=== PATIENT | male | born 1965 | race Hispanic/Latino ===

== ENCOUNTER 2016-11-08 16:36 | Emergency (ER) | payer OTHER ==
[~2016-11-08] VITALS: Ht 149.9 cm; Wt 76.7 kg
--- NOTE | 2016-11-08 17:24 | ED HAND/WRIST INJURY COMPLAINT ---
History of Present Illness General Chief Complaint: Laceration Procedure Stated Complaint: CUT LEFT FINGER AT WORK WITH METAL PLATE Source: patient Exam Limitations: language barrier Vital Signs & Intake/Output Vital Signs & Intake/Output Vital Signs Date Time Temp Pulse Resp B/P Pulse O2 O2 Flow FiO2 Ox Delivery Rate 11/08 1904 80 18 148/88 99 Room Air 11/08 1643 99.9 98 20 162/94 97 Room Air ED Intake and Output 11/09 0000 11/08 1200 Intake Total Output Total Balance Patient 169 lb Weight Allergies Coded Allergies: No Known Allergies (11/08/16) Reconcile Medications Amoxicillin/Potassium Clav (Augmentin 875-125 Tablet) 875 MG-125 MG TABLET 1 TAB PO BID OPEN FRACTURE Oxycodone HCl/Acetaminophen (Percocet 5-325 MG Tablet) 5 MG-325 MG TABLET 1-2 TAB PO Q6P PRN PAIN Triage Note: TRIAGE: PT TO ER WITH CO-WORKER C/C LAC TO L MIDDLE FINGER S/P INJURY APPROX 1 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 STATES HE CUT IT "BETWEEN A METAL PLATE AND A TABLE". COWORKER ?'S IF NAIL CAME OFF FROM INJURY. HAS GAUZE DRESSING IN PLACE AT TRIAGE. PT PREDOMINANTLY SERBIAN SPEAKING, COWORKER ASSISTS WITH TRANSLATIONS. Triage Nurses Notes Reviewed? yes Occurred: just prior to arrival Duration: minute(s):, constant, continues in ED Timing: recent history Injury Environment: home Severity: severe Pain/Injury Location: Left: 3rd finger. Context: crush Method of Injury: laceration No Modifying Factors: none HPI: 51-year-old male comes into emergency room for further evaluation of pain to left middle finger. Reportedly the patient crushed it at work. Sharp throbbing pain. Patient has associated bleeding. Deformity to the left middle finger. Patient reportedly had a tetanus shot one year ago. Sharp throbbing pain. Patient does not speak Citizen Of [place] and coworkers are translating. (GEOVANY FRANCIS) Past History Travel History Traveled to [place] past 21 day No Medical History Any Pertinent Medical History? 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 No (GEOVANY FRANCIS) Review of Systems Review of Systems Constitutional: Reports: no symptoms. EENTM: Reports: no symptoms. Respiratory: Reports: no symptoms. Cardiovascular: Reports: no symptoms. GI: Reports: no symptoms. Genitourinary: Reports: no symptoms. Musculoskeletal: Reports: see HPI. Skin: Reports: no symptoms. Neurological/Psychological: Reports: no symptoms. Hematologic/Endocrine: Reports: no symptoms. Immunologic/Allergic: Reports: no symptoms. All Other Systems: Reviewed and Negative (GEOVANY FRANCIS) Physical Exam Physical Exam General Appearance: well developed/nourished, mild distress Head: atraumatic Eyes: Bilateral: normal appearance. Ears, Nose, Throat: normal ENT inspection, hearing grossly normal Neck: normal inspection Cardiovascular/Respiratory: no respiratory distress Back: normal inspection Hand Left: 3rd finger, crush injury, sensation intact, obvious deformity, Limited range of motion, nail completely avulsed Hand Right: normal inspection, normal range of motion Neurologic/Tendon: normal sensation, normal motor functions, responds to pain, no evidence tendon injury Skin: intact, normal color, warm/dry Lymphatic: no anterior cervical larisa (GEOVANY FRANCIS) Progress Differential Diagnosis: contusion, dislocation, felon, fracture, paronychia, sprain Plan of Care: Orders Procedure Date/time Status XRY-FINGERS, LEFT 11/08 1721 Active Diagnostic Imaging: Viewed by Me: Radiology Read. Discussed w/RAD: Radiology Read. Radiology Impression: EXAM TYPE: RAD - XRY-FINGERS, LEFT EXAMINATION: XR FINGER, LEFT CLINICAL INFORMATION: Open fracture laceration left middle finger COMPARISON: None TECHNIQUE: 3 views of the left middle finger including AP view of the hand FINDINGS: There is a mildly displaced transverse fractures of the distal tip of the tuft of the distal phalanx of the middle finger. Also there is some irregularity of the soft tissues indicative of concomitant soft tissue injury. The bone fragment measures 2 to 3 mm The remaining bone and joints are normal. IMPRESSION: Minimally displaced fracture of the tip of the tuft of the distal phalanx of the middle finger in the left hand with associated soft tissue injury DICTATED BY: ARCADIO DANIELS MD DATE/TIME DICTATED:11/08/161743 PHARMACY CLINICAL COORDINATOR:GABBY DATE/TIME TRANSCRIBED:11/08/161743 (GEOVANY FRANCIS) Departure Departure Disposition: HOME OR SELF CARE Condition: Stable Clinical Impression Primary Impression: Open fracture of tuft of distal phalanx of finger Referrals: UNKNOWN (PCP/Family) Additional Instructions: Take Percocet and Augmentin as prescribed. Follow-up with plastic surgeon provided. Return to the emergency room if any concerns worsening symptoms. Keep dressing in place until he see the plastic surgeon. Please go over all results of today's visit with your primary care doctor. Contact your primary care doctor to let them know you were here in the emergency room. There may be nonspecific findings which may not be related to your visit today here in the emergency room but may require further evaluation and chronic monitoring by your primary care doctor. If you had a laceration today the chance of foreign body always remains. You should follow-up with your primary care doctor for recheck in 3-5 days for a wound check. If you had an x-ray done there is a chance that a fracture could have been missed on initial read and you should follow-up with your primary care doctor for repeat x-rays if symptoms persist. If your blood pressure was elevated here in the emergency room please have rechecked by her primary care doctor within the next 48 hours by your primary care doctor. If you were prescribed a narcotic here in the emergency room or any type of controlled substances you're not allowed to drive while taking this medication or operate any type of heavy machinery. Narcotics can make you feel lightheaded dizziness nausea and can cause constipation. You may need to picker and sorter load and unload a stool softener. Thank you for choosing [facility] emergency room. Please return to the emergency room immediately if you have any other concerns worsening of symptoms. Departure Forms: Customer Survey Employee Industrial Accident General Discharge Information Prescriptions: Current Visit Scripts Oxycodone HCl/Acetaminophen (Percocet 5-325 MG Tablet) 1-2 TAB PO Q6P PRN PAIN #20 TAB Amoxicillin/Potassium Clav (Augmentin 875-125 Tablet) 1 TAB PO BID #20 TAB (GEOVANY FRANCIS) PA/SPECIAL EDUCATION PARAPROFESSIONAL Co-Sign Statement Statement: ED Attending supervision documentation- [] I saw and evaluated the patient. I have also reviewed all the pertinent lab results and diagnostic results. I agree with the findings and the plan of care as documented in the PA's/SPECIAL EDUCATION PARAPROFESSIONAL's documentation. [X] I have reviewed the ED Record and agree with the PA's/SPECIAL EDUCATION PARAPROFESSIONAL's documentation. [] Additions or exceptions (if any) to the PAs/SPECIAL EDUCATION PARAPROFESSIONAL's note and plan are summarized below: [] (GARDENIA CHAN,ASHLEY Hylton) Procedures Laceration/Wound Repair Laceration/Wound Repair: Wound Location: upper extremity Irrigated w/ Saline (ccs): 500 Betadine Prep? Yes Anesthesia: 2% lidocaine Volume Anesthetic (ccs): 8 Wound Debrided: moderate Suture Size/Type: 4:0, chromic gut Number of Sutures: 10 Sterile Dressing Applied: Yes Splint Applied? Yes By Who? by me Type of Splint Applied: finger splint Tetanus Status: up to date Progress: Complex laceration, 45 minutes at bedside, irrigated with copious amounts of saline Betadine and peroxide, cover with Xeroform bacitracin and splint (GEOVANY FRANCIS)
--- NOTE | 2016-11-08 17:49 | RADIOLOGY REPORT ---
EXAMINATION: XR FINGER, LEFT CLINICAL INFORMATION: Open fracture laceration left middle finger COMPARISON: None TECHNIQUE: 3 views of the left middle finger including AP view of the hand FINDINGS: There is a mildly displaced transverse fractures of the distal tip of the tuft of the distal phalanx of the middle finger. Also there is some irregularity of the soft tissues indicative of concomitant soft tissue injury. The bone fragment measures 2 to 3 mm The remaining bone and joints are normal. IMPRESSION: Minimally displaced fracture of the tip of the tuft of the distal phalanx of the middle finger in the left hand with associated soft tissue injury
[2016-11-08] MEDS ORDERED: PERCOCET 5-3251 EACH PO (18:49)
[2016-11-08] MEDS ORDERED: AUGMENTIN 875-1 EACH PO (18:49)
[2016-11-08 19:04] VITALS: BP 148/88
== END 2016-11-08 19:04 ==
LOC: ERH 16:36
DX: S62.633A Displaced fracture of distal phalanx of left middle finger, initial encounter for closed fracture (principal); W23.0XXA Caught, crushed, jammed, or pinched between moving objects, initial encounter
CPT/HCPCS: 73140-LT; J2001; J3490